=== PATIENT | male | born 1955 | race Native Hawaiian/Other Pacific Islander ===

== ENCOUNTER 2017-10-19 17:23 | Emergency (ER) | payer BC ==
[~2017-10-19] VITALS: Ht 177.8 cm; Wt 95.3 kg
[~2017-10-19 17:23] MED LIST: ALLEGRA ALRG60 M1 OR; BYSTOLIC5 MG PO; HYZAAR1 TA2 PO; JANUVIA100 MG PO; LEVEMIR FLEXPEN SC; RANO500T PO; VIT E COMPLX400 UNIT OR
== END 2017-10-19 20:20 | disposition home or self-care (01) ==
LOC: ED 17:23
PROC: 0HQGXZZ Repair Left Hand Skin, External Approach (ICD-10-PCS; principal; 2017-10-19)
DX: S61.213A Laceration without foreign body of left middle finger without damage to nail, initial encounter (principal); S61.215A Laceration without foreign body of left ring finger without damage to nail, initial encounter; S61.217A Laceration without foreign body of left little finger without damage to nail, initial encounter; S61.211A Laceration without foreign body of left index finger without damage to nail, initial encounter; S61.012A Laceration without foreign body of left thumb without damage to nail, initial encounter; W45.8XXA Other foreign body or object entering through skin, initial encounter; Y92.098 Other place in other non-institutional residence as the place of occurrence of the external cause
CPT/HCPCS: 90471; 90715; 99284; J2001

== ENCOUNTER 2018-06-07 10:21 | Outpatient (CLI) | payer BC ==
[2018-06-07 10:37] LABS: PLATELET COUNT 228 K/uL (142-355)
[2018-06-07 11:19] LABS: POTASSIUM 3.9 mmol/L (3.6-5.2)
== END 2018-06-07 19:33 | disposition home or self-care (01) ==
LOC: LABW 10:21
PROVIDERS: Internal Medicine
DX: E11.9 Type 2 diabetes mellitus without complications (principal); Z00.00 Encounter for general adult medical examination without abnormal findings; Z12.5 Encounter for screening for malignant neoplasm of prostate
CPT/HCPCS: 36415; 80053; 80061; 81000; 83036; 84153; 84439; 84443; 85027

== ENCOUNTER 2018-08-14 08:36 | Outpatient (CLI) | payer BC | END 2018-08-14 20:59 | disposition home or self-care (01) | LOC: US 08:36 | DX: Z13.6 Encounter for screening for cardiovascular disorders (principal) ==

== ENCOUNTER 2019-04-01 11:25 | Emergency (ER) | payer BC ==
[~2019-04-01] VITALS: Ht 177.8 cm; Wt 99.8 kg
[2019-04-01 11:30] VITALS: TEMP 99.3
[2019-04-01 13:00] VITALS: BP 138/68
== END 2019-04-01 13:44 | disposition home or self-care (01) ==
LOC: ED 11:25
DX: T78.40XA Allergy, unspecified, initial encounter (principal)
CPT/HCPCS: 36415; 96360; 96365; 96375; 99284; J1200; J2930

== ENCOUNTER 2019-07-15 11:45 | Outpatient (CLI) | payer BC ==
[2019-07-15 12:19] LABS: PLATELET COUNT 255 K/uL (142-355)
[2019-07-15 12:26] LABS: POTASSIUM 3.6 mmol/L (3.6-5.2)
== END 2019-07-15 20:15 | disposition home or self-care (01) ==
LOC: RAD 11:45 → LABW 11:45
PROVIDERS: Specialist
DX: Z01.810 Encounter for preprocedural cardiovascular examination (principal); I25.10 Atherosclerotic heart disease of native coronary artery without angina pectoris; E78.2 Mixed hyperlipidemia; D72.828 Other elevated white blood cell count; R93.1 Abnormal findings on diagnostic imaging of heart and coronary circulation
CPT/HCPCS: 36415; 80053; 81000; 85027

== ENCOUNTER 2019-07-26 14:36 | Outpatient (CLI) | payer BC ==
[2019-07-26 15:07] LABS: POTASSIUM 3.9 mmol/L (3.6-5.2)
== END 2019-07-26 19:32 | disposition home or self-care (01) ==
LOC: LABW 14:36
PROVIDERS: Nurse Practitioner Adult Health
DX: E11.9 Type 2 diabetes mellitus without complications (principal); I95.9 Hypotension, unspecified; Z51.81 Encounter for therapeutic drug level monitoring
CPT/HCPCS: 36415; 80048

== ENCOUNTER 2019-08-26 07:48 | Outpatient (CLI) | payer BC, OTHER ==
[2019-08-26 08:09] LABS: PLATELET COUNT 230 K/uL (142-355)
== END 2019-08-26 19:09 | disposition home or self-care (01) ==
LOC: LABW 07:48
PROVIDERS: Internal Medicine
DX: E11.41 Type 2 diabetes mellitus with diabetic mononeuropathy (principal); Z12.5 Encounter for screening for malignant neoplasm of prostate; N40.0 Benign prostatic hyperplasia without lower urinary tract symptoms
CPT/HCPCS: 36415; 80053; 80061; 81000; 82043; 82570; 83036; 84153; 84439; 84443; 85027

== ENCOUNTER 2020-03-05 11:28 | Outpatient (CLI) | payer OTHER, BC ==
[2020-03-05 12:12] LABS: PLATELET COUNT 221 K/uL (142-355)
[2020-03-05 12:45] LABS: POTASSIUM 3.4 mmol/L (3.6-5.2)
== END 2020-03-05 21:51 | disposition home or self-care (01) ==
LOC: LAB 11:28
PROVIDERS: Internal Medicine
DX: Z00.00 Encounter for general adult medical examination without abnormal findings (principal); E11.41 Type 2 diabetes mellitus with diabetic mononeuropathy
CPT/HCPCS: 80053; 80061; 81000; 83036; 84439; 84443; 85027

== ENCOUNTER 2020-03-27 10:42 | Outpatient (CLI) | payer OTHER, BC | END 2020-03-27 23:14 | disposition home or self-care (01) | LOC: US 10:42 | DX: Z12.2 Encounter for screening for malignant neoplasm of respiratory organs (principal); Z13.6 Encounter for screening for cardiovascular disorders; R91.8 Other nonspecific abnormal finding of lung field | CPT/HCPCS: G0297-TC ==

== ENCOUNTER 2021-03-29 20:05 | Emergency (ER) | payer OTHER ==
[~2021-03-29] VITALS: Ht 177.8 cm; Wt 104.3 kg
[2021-03-29 20:33] LABS: PLATELET COUNT 253 K/uL (142-355)
[2021-03-29 20:51] LABS: POTASSIUM 3.2 mmol/L (3.6-5.2); SODIUM 140 mmol/L (136-145)
[2021-03-29 20:58] LABS: PARTIAL THROMBOPLASTIN TIME 22.4 SECONDS (24.5-33.6)
[2021-03-29 22:05] VITALS: BP 146/77; TEMP 97
== END 2021-03-29 22:05 | disposition short-term general hospital (02) ==
LOC: ED 20:09
PROVIDERS: Emergency Medicine
DX: I21.3 ST elevation (STEMI) myocardial infarction of unspecified site (principal); R94.31 Abnormal electrocardiogram [ECG] [EKG]; I10 Essential (primary) hypertension; E11.9 Type 2 diabetes mellitus without complications; Z20.822 Contact with and (suspected) exposure to COVID-19
CPT/HCPCS: 36415; 80053; 83880; 84484; 85027; 85379; 85610; 85730; 87635; 93005; 96365; 96375; 99285; J1644; J2270; J2405; U0003

== ENCOUNTER 2021-04-13 09:42 | Outpatient (CLI) | payer BC | END 2021-04-13 20:08 | disposition home or self-care (01) | LOC: LABW 09:42 | PROVIDERS: ATTEND Nurse Practitioner Adult Health | DX: R35.8 Other polyuria (principal) | CPT/HCPCS: 36415; 80048 ==

== ENCOUNTER 2022-08-01 13:18 | Outpatient (CLI) | payer BC ==
[2022-08-01 13:34] LABS: PLATELET COUNT 234 K/uL (142-355)
== END 2022-08-01 21:39 | disposition home or self-care (01) ==
LOC: LAB 13:18
PROVIDERS: ATTEND Internal Medicine
DX: E11.9 Type 2 diabetes mellitus without complications (principal)
CPT/HCPCS: 80053; 80061; 81002; 83036; 84439; 84443; 85027

== ENCOUNTER 2022-10-18 13:28 | Outpatient (CLI) | payer BC | END 2022-10-18 19:21 | disposition home or self-care (01) | LOC: LABW 13:28 | PROVIDERS: ATTEND Internal Medicine | DX: G62.89 Other specified polyneuropathies (principal) | CPT/HCPCS: 36415; 82175; 82607 ==

== ENCOUNTER 2022-12-22 09:31 | Outpatient (CLI) | payer BC ==
[2022-12-22 10:07] LABS: POTASSIUM 3.6 mmol/L (3.6-5.2)
[2022-12-22 10:09] LABS: PLATELET COUNT 220 K/uL (142-355)
== END 2022-12-22 19:11 | disposition home or self-care (01) ==
LOC: LABW 09:31
PROVIDERS: ATTEND Internal Medicine
DX: R00.1 Bradycardia, unspecified (principal)
CPT/HCPCS: 36415; 80053; 83735; 84439; 84443; 85027

== ENCOUNTER 2022-12-27 08:10 | Outpatient (CLI) | payer BC ==
[2022-12-27 08:29] LABS: POTASSIUM 3.9 mmol/L (3.6-5.2)
[2022-12-27 08:31] LABS: PLATELET COUNT 206 K/uL (142-355)
== END 2022-12-27 18:53 | disposition home or self-care (01) ==
LOC: LABW 08:10
PROVIDERS: ATTEND Nurse Practitioner
DX: I49.5 Sick sinus syndrome (principal)
CPT/HCPCS: 36415; 80048; 85027